=== PATIENT | male | born 1985 | race Hispanic/Latino ===

== ENCOUNTER 2022-05-22 16:05 | Outpatient (CLI) | payer BC, OTHER | END 2022-05-22 16:06 | disposition home or self-care (01) | LOC: SCSRAD 16:05 | PROVIDERS: ATTEND Nurse Practitioner Family | DX: M54.50 Low back pain, unspecified (principal); M47.816 Spondylosis without myelopathy or radiculopathy, lumbar region; M51.36 Other intervertebral disc degeneration, lumbar region; M51.37 Other intervertebral disc degeneration, lumbosacral region; Q76.49 Other congenital malformations of spine, not associated with scoliosis | CPT/HCPCS: 72100 ==

== ENCOUNTER 2022-12-28 15:41 | Outpatient (CLI) | payer BC | END 2022-12-28 15:42 | disposition home or self-care (01) | LOC: SCSRAD 15:41 | PROVIDERS: ATTEND Nurse Practitioner Family | DX: M25.561 Pain in right knee (principal); M17.11 Unilateral primary osteoarthritis, right knee ==